=== PATIENT | female | born 1950 | race African-American/Black ===

== ENCOUNTER 2017-08-05 21:29 | Inpatient (IN) ==
[2017-08-05] MEDS ORDERED: HYDROmorphone 2 MG/1 ML VIAL IV PRN (22:52)
[2017-08-05] MEDS ORDERED: hydrALAZINE 20 MG/1 ML VIAL IV PRN (22:52)
[2017-08-05] MEDS ORDERED: DEXTROSE 50% 25 GM/50 ML VIAL IV PRN (22:52)
[2017-08-05] MEDS ORDERED: ONDANSETRON 4 MG/2 ML VIAL IV PRN (22:52)
[2017-08-05] MEDS ORDERED: GLUCAGON 1 MG VIAL IM PRN (22:52)
[2017-08-05] MEDS: DEXTROSE 5% NACL 0.45% 1,000 ML IV SCH (23:31)
[2017-08-05] MEDS: METOCLOPRAMIDE 10 MG/2 ML VIAL IV SCH (23:31)
[2017-08-06] MEDS: AMPICILLIN/SULBACTAM 3,000 MG in SODIUM CHLORIDE 0.9% 100 ML IV SCH ×5 (00:05→23:33)
[2017-08-06] MEDS: INSULIN REGULAR 100 UNIT/ML SUBCUT SCH ×4 (00:06→19:24)
[2017-08-06] MEDS: METOCLOPRAMIDE 10 MG/2 ML VIAL IV SCH ×3 (05:29→19:21)
[2017-08-06 06:04] LABS: Basophils % 0.3 % (0.0-0.8); Eosinophils % 0.1 % (0.00-10.9); Hemoglobin 14.3 GM/DL (12.0-16.0); Immature Granulocytes % 0.4 %; Immature Granulocytes Absolute 0.05 #; Lymphocytes # 2.2 10*3/uL (1.4-4.0); Mean Corpuscular Hemoglobin 30 PG (27-34); Mean Corpuscular Volume 87.9 FL (87-102); Mean Platelet Volume 12.6 FL (9.6-12.0); Monocytes # 1.5 10*3/uL (0.11-0.8); Monocytes % 11.6 % (1.7-12.7); Neutrophils # 9.3 10*3/uL (1.4-7.4); Neutrophils % 70.6 % (38.7-73.9); Platelet Count 162 T/CUMM (130-400); Red Blood Count 4.78 MC/CUMM (3.8-5.5); Red Cell Distribution Width 13.6 % (9.3-17.3); White Blood Count 13.2 T/CUMM (4-12)
[2017-08-06 06:19] LABS: INR 1.1; PT Patient Result 11.2 SECS; Partial Thromboplastin Time 32.1 SECS (0-40)
[2017-08-06 06:43] LABS: Albumin 3.2 G/DL (3.4-5.0); Bilirubin,Total 1.8 MG/DL (0.2-1.0); Calcium 8.8 MG/DL (8.5-10.1); Osmolality,Calculated 288.7 MOS/KG (273-304); Potassium 4.2 MMOL/L (3.5-5.1); Total Protein 6.6 G/DL (6.4-8.3)
[2017-08-06] MEDS ORDERED: PANTOPRAZOLE 40 MG VIAL IV SCH (09:00)
[2017-08-06] MEDS: DEXTROSE 5% NACL 0.45% 1,000 ML IV SCH ×3 (09:04→23:33)
[2017-08-06 12:10] LABS: Troponin I Only 0.032 NG/ML (0.00-0.045)
[2017-08-06] MEDS: METOPROLOL TARTRATE 5 MG/5 ML VIAL IV SCH ×2 (13:04→19:07)
[2017-08-06] MEDS ORDERED: TISSUE ADHESIVE 1 EACH APPLICATOR TOP ONE (15:25)
[2017-08-06] MEDS ORDERED: BUPIVACAINE 0.25% 50 ML VIAL ONE (15:25)
[2017-08-06] MEDS ORDERED: LIDOCAINE 1%/EPI INJ 20 ML VIAL ONE (15:25)
[2017-08-06] MEDS ORDERED: HYDROmorphone 2 MG/1 ML VIAL IV PRN (17:28)
[2017-08-06] MEDS ORDERED: ONDANSETRON 4 MG/2 ML VIAL IV PRN (17:56)
[2017-08-06] MEDS ORDERED: HYDROmorphone 2 MG/1 ML VIAL ONE (17:58)
[2017-08-06] MEDS ORDERED: ONDANSETRON 4 MG/2 ML VIAL ONE ×2 (17:58→21:19)
[2017-08-06] MEDS: HYDROmorphone 2 MG/1 ML VIAL IV PRN ×4 (18:01→18:27)
[2017-08-06] MEDS: glyBURIDE/METFORMIN 5-500 MG TABLET PO SCH (20:07)
[2017-08-06] MEDS ORDERED: PROPOFOL 200 MG/20 ML VIAL IV ONE (21:18)
[2017-08-06] MEDS ORDERED: fentaNYL 100 MCG/2 ML VIAL ONE (21:18)
[2017-08-06] MEDS ORDERED: SEVOFLURANE 1 UNIT/15 MINUTE INH ONE (21:18)
[2017-08-06] MEDS ORDERED: PHENYLEPHRINE DRIP 20 MG/250 ML PREMIX IV ONE (21:18)
[2017-08-06] MEDS ORDERED: MIDAZOLAM 2 MG/2 ML VIAL ONE (21:18)
[2017-08-06] MEDS ORDERED: ROCURONIUM 100 MG/10 ML VIAL IV ONE (21:19)
[2017-08-06] MEDS ORDERED: NEOSTIGMINE 10 MG/10 ML VIAL ONE (21:19)
[2017-08-06] MEDS ORDERED: GLYCOPYRROLATE 0.4 MG/2 ML VIAL ONE (21:19)
[2017-08-06] MEDS: PREGABALIN 75 MG CAPSULE PO SCH (21:34)
[2017-08-06 22:16] LABS: Hematocrit 39.7 VOL% (35.7-47.0); Hemoglobin 13.5 GM/DL (12.0-16.0)
[2017-08-07] MEDS: METOPROLOL TARTRATE 5 MG/5 ML VIAL IV SCH ×4 (00:41→17:18)
[2017-08-07] MEDS: INSULIN REGULAR 100 UNIT/ML SUBCUT SCH ×4 (00:44→18:21)
[2017-08-07] MEDS: METOCLOPRAMIDE 10 MG/2 ML VIAL IV SCH ×4 (00:45→17:29)
[2017-08-07 05:24] LABS: Basophils % 0.2 % (0.0-0.8); Eosinophils % 0.1 % (0.00-10.9); Hematocrit 38.4 VOL% (35.7-47.0); Hemoglobin 13.2 GM/DL (12.0-16.0); Immature Granulocytes % 0.4 %; Immature Granulocytes Absolute 0.05 #; Lymphocytes # 1.8 10*3/uL (1.4-4.0); Lymphocytes % 14.1 % (21.3-54.2); Mean Corpuscular HGB Conc 34.4 GM/DL (32-36); Mean Corpuscular Hemoglobin 30 PG (27-34); Mean Corpuscular Volume 88.3 FL (87-102); Mean Platelet Volume 13.4 FL (9.6-12.0); Monocytes # 1.1 10*3/uL (0.11-0.8); Monocytes % 8.6 % (1.7-12.7); Neutrophils # 9.7 10*3/uL (1.4-7.4); Neutrophils % 76.6 % (38.7-73.9); Platelet Count 137 T/CUMM (130-400); Red Blood Count 4.35 MC/CUMM (3.8-5.5); Red Cell Distribution Width 13.7 % (9.3-17.3); White Blood Count 12.6 T/CUMM (4-12)
[2017-08-07] MEDS: AMPICILLIN/SULBACTAM 3,000 MG in SODIUM CHLORIDE 0.9% 100 ML IV SCH ×3 (05:43→17:30)
[2017-08-07 06:03] LABS: Albumin 2.6 G/DL (3.4-5.0); Bilirubin,Total 1.5 MG/DL (0.2-1.0); Calcium 8.1 MG/DL (8.5-10.1); Osmolality,Calculated 281.7 MOS/KG (273-304); Potassium 3.8 MMOL/L (3.5-5.1)
[2017-08-07] MEDS: LEVOTHYROXINE 75 MCG TABLET PO SCH (06:28)
[2017-08-07] MEDS: glyBURIDE/METFORMIN 5-500 MG TABLET PO SCH ×2 (08:36→20:20)
[2017-08-07] MEDS: PREGABALIN 75 MG CAPSULE PO SCH ×2 (08:36→20:20)
[2017-08-07] MEDS: MULTIVITAMIN (BEROCCA) TABLET PO SCH (08:36)
[2017-08-07] MEDS: ATORVASTATIN 20 MG TABLET PO SCH (08:36)
[2017-08-07] MEDS: PANTOPRAZOLE 40 MG TABLET PO SCH (08:36)
[2017-08-07] MEDS: ASPIRIN EC 81 MG TABLET PO SCH (08:36)
[2017-08-07] MEDS: MAGNESIUM GLUCONATE 500 MG TABLET PO SCH (08:36)
[2017-08-07] MEDS: ATENOLOL 50 MG TABLET PO SCH (08:40)
[2017-08-07] MEDS: DEXTROSE 5% NACL 0.45% 1,000 ML IV SCH ×2 (08:46→17:17)
[2017-08-07] MEDS ORDERED: BENAZEPRIL 10 MG TABLET PO SCH (09:00)
[2017-08-07] MEDS ORDERED: ASPIRIN EC 81 MG TABLET PO SCH (09:00)
[2017-08-07] MEDS: ACETAMINOPHEN 325 MG TABLET PO PRN ×2 (10:00→17:28)
[2017-08-07] MEDS: ENOXAPARIN 40 MG/0.4 ML SYRINGE SUBCUT SCH (11:07)
[2017-08-08] MEDS: INSULIN REGULAR 100 UNIT/ML SUBCUT SCH ×4 (00:47→18:20)
[2017-08-08] MEDS: METOCLOPRAMIDE 10 MG/2 ML VIAL IV SCH ×4 (00:48→18:21)
[2017-08-08] MEDS: DEXTROSE 5% NACL 0.45% 1,000 ML IV SCH ×2 (03:13→10:59)
[2017-08-08] MEDS: ACETAMINOPHEN 325 MG TABLET PO PRN ×2 (03:14→10:56)
[2017-08-08] MEDS: AMPICILLIN/SULBACTAM 3,000 MG in SODIUM CHLORIDE 0.9% 100 ML IV SCH ×4 (07:42→18:20)
[2017-08-08] MEDS: LEVOTHYROXINE 75 MCG TABLET PO SCH (07:42)
[2017-08-08] MEDS: MULTIVITAMIN (BEROCCA) TABLET PO SCH (09:16)
[2017-08-08] MEDS: ATENOLOL 50 MG TABLET PO SCH (09:16)
[2017-08-08] MEDS: MAGNESIUM GLUCONATE 500 MG TABLET PO SCH (09:16)
[2017-08-08] MEDS: ASPIRIN EC 81 MG TABLET PO SCH (09:17)
[2017-08-08] MEDS: glyBURIDE/METFORMIN 5-500 MG TABLET PO SCH (09:17)
[2017-08-08] MEDS: PREGABALIN 75 MG CAPSULE PO SCH (09:17)
[2017-08-08] MEDS: PANTOPRAZOLE 40 MG TABLET PO SCH (09:18)
[2017-08-08] MEDS: ATORVASTATIN 20 MG TABLET PO SCH (09:52)
[2017-08-08] MEDS ORDERED: GLUCAGON 1 MG VIAL IM PRN (11:32)
[2017-08-08] MEDS ORDERED: DEXTROSE 50% 25 GM/50 ML VIAL IV PRN (11:32)
[2017-08-08] MEDS: ENOXAPARIN 40 MG/0.4 ML SYRINGE SUBCUT SCH (12:26)
[2017-08-08 16:02] VITALS: BP 134/78
[2017-08-08] MEDS ORDERED: ATENOLOL 25 MG TABLET PO SCH (21:00)
== END 2017-08-08 18:43 | disposition home or self-care (01) | DRG 412 ==
LOC: EDBD → EDUNIT# → N.ED 21:29 → N.EDINP 22:14 → N.3E 23:13
PROVIDERS: ADMIT Specialist; ATTEND Specialist
PROC: LAPCHOL (2017-08-06 15:27)

== ENCOUNTER 2019-06-27 04:58 | Observation (INO) ==
[2019-06-27 05:42] LABS: Basophils % 0.3 % (0.0-0.8); Eosinophils # 0.2 10*3/uL (0.0-0.87); Eosinophils % 1.8 % (0.00-10.9); Hematocrit 42.8 VOL% (35.7-47.0); Hemoglobin 14.1 GM/DL (12.0-16.0); Immature Granulocytes % 0.3 %; Immature Granulocytes Absolute 0.03 #; Lymphocytes # 2.5 10*3/uL (1.4-4.0); Mean Corpuscular HGB Conc 32.9 GM/DL (32-36); Mean Corpuscular Volume 93.4 FL (87-102); Mean Platelet Volume 12.2 FL (9.6-12.0); Monocytes % 6.8 % (1.7-12.7); Neutrophils % 62.8 % (38.7-73.9); Platelet Count 170 T/CUMM (130-400); Red Blood Count 4.58 MC/CUMM (3.8-5.5); Red Cell Distribution Width 13.3 % (9.3-17.3); White Blood Count 8.7 T/CUMM (4-12)
[2019-06-27 05:46] LABS: PT Patient Result 10.5 SECS (9.6-12.2)
[2019-06-27 05:54] LABS: Alanine Aminotransferase 28 U/L (13-56); Albumin 3.9 G/DL (3.4-5.0); Alkaline Phosphatase 86 U/L (45-117); Aspartate Amino Transferase 27 U/L (0-37); Blood Urea Nitrogen 20 MG/DL (7-18); Calcium 9.9 MG/DL (8.5-10.1); Estimated Glom Filtration Rate 59 ML/MIN; Glucose 160 MG/DL (74-106); Total Protein 7.7 G/DL (6.4-8.3)
[2019-06-27 05:55] LABS: Troponin I 0.055 NG/ML (0.00-0.045)
[2019-06-27] MEDS ORDERED: ONDANSETRON 4 MG/2 ML VIAL IV STA (06:18)
[2019-06-27 06:54] LABS: Apearance,Urine CLEAR (Clear); Bilirubin,Urine Negative (Negative); Blood, Urine Negative (Negative); Glucose,Urine (UA) 50 mg/dL (Negative); Ketones,Urine Negative (Negative); Nitrite,Urine Negative (Negative); Protein,Urine 30 MG/DL; RBC,Urine 1 /HPF (0-4); Squamous Epithelial Cell,Urine Occasional /HPF (0-10); Urine Color Straw (Yellow); Urine Specific Gravity 1.011 (1.001-1.035); Urine Urobilinogen < 2.0 EU/DL (0.2-1.0); WBC,Urine 1 /HPF (0-6)
[2019-06-27 07:08] LABS: Barbiturates Screen,Urine Negative (Negative); Benzodiazepines Screen,Urine Negative (Negative); Cannabinoid Screen,Urine Negative (Negative); Opiate Screen,Urine Negative (Negative); Phencyclidine Screen,Urine Negative (Negative)
[2019-06-27] MEDS ORDERED: ACETAMINOPHEN 325 MG TABLET PO PRN (09:13)
[2019-06-27] MEDS ORDERED: ONDANSETRON 4 MG/2 ML VIAL IV PRN (09:13)
[2019-06-27] MEDS ORDERED: DEXTROSE 10% 25 GM/250 ML BAG IV PRN ×2 (09:36→12:19)
[2019-06-27] MEDS ORDERED: GLUCAGON 1 MG VIAL IM PRN ×2 (09:36→12:19)
[2019-06-27] MEDS: INSULIN LISPRO 100 UNIT/ML SUBCUT SCH ×3 (11:32→20:22)
[2019-06-27] MEDS: MECLIZINE 12.5 MG TABLET PO SCH ×2 (13:16→20:14)
[2019-06-27 13:57] LABS: Troponin I 0.067 NG/ML (0.00-0.045)
[2019-06-27 16:51] LABS: Troponin I 0.068 NG/ML (0.00-0.045)
[2019-06-27] MEDS: ASPIRIN EC 81 MG TABLET PO SCH (17:51)
[2019-06-28 04:45] LABS: Basophils % 0.5 % (0.0-0.8); Eosinophils # 0.1 10*3/uL (0.0-0.87); Eosinophils % 2.1 % (0.00-10.9); Hematocrit 40.6 VOL% (35.7-47.0); Hemoglobin 13.4 GM/DL (12.0-16.0); Immature Granulocytes % 0.2 %; Immature Granulocytes Absolute 0.01 #; Lymphocytes # 3.4 10*3/uL (1.4-4.0); Lymphocytes % 51.9 % (21.3-54.2); Mean Corpuscular Volume 91.9 FL (87-102); Mean Platelet Volume 12.2 FL (9.6-12.0); Monocytes % 6.7 % (1.7-12.7); Neutrophils % 38.6 % (38.7-73.9); Platelet Count 162 T/CUMM (130-400); Red Blood Count 4.42 MC/CUMM (3.8-5.5); Red Cell Distribution Width 13.3 % (9.3-17.3); White Blood Count 6.6 T/CUMM (4-12)
[2019-06-28 05:09] LABS: Eosinophils 1 % (0-10); Lymphocytes 45 % (20-55); Segmented Neutrophils 48 % (50-85); Total Cells Counted 100
[2019-06-28 05:10] LABS: Hypochromasia 1+; Platelet Estimate Adequate
[2019-06-28 05:18] LABS: Albumin 3.3 G/DL (3.4-5.0); Bilirubin,Total 0.8 MG/DL (0.2-1.0); Calcium 9.1 MG/DL (8.5-10.1); Calcium 9.5 MG/DL (8.5-10.1); Osmolality,Calculated 284.1 MOS/KG (273-304); Total Protein 6.7 G/DL (6.4-8.3); Troponin I 0.077 NG/ML (0.00-0.045)
[2019-06-28] MEDS: INSULIN LISPRO 100 UNIT/ML SUBCUT SCH ×2 (07:44→11:23)
[2019-06-28] MEDS: ASPIRIN EC 81 MG TABLET PO SCH (08:47)
[2019-06-28] MEDS: MECLIZINE 12.5 MG TABLET PO SCH (08:47)
[2019-06-28] MEDS ORDERED: PANTOPRAZOLE 40 MG TABLET PO SCH (09:00)
[2019-06-28 09:54] LABS: Troponin I 0.071 NG/ML (0.00-0.045)
[2019-06-28 12:08] VITALS: BP 122/72
== END 2019-06-28 14:40 | disposition home or self-care (01) ==
LOC: EDBD → EDUNIT# → N.ED 04:58 → N.EDINP 04:58 → N.4E 09:34
PROVIDERS: ADMIT Internal Medicine; ATTEND Internal Medicine